=== PATIENT | female | born 1980 | race Two or more races ===

== ENCOUNTER 2017-08-02 09:43 | Emergency (ER) | payer OTHER ==
[~2017-08-02] VITALS: Ht 170.2 cm; Wt 51.7 kg
[~2017-08-02 09:43] MED LIST: LORA5TAB9
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
--- NOTE | 2017-08-02 10:10 | NUR ---
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
[2017-08-02] MEDS ORDERED: ONDANSETRON 4 MG TAB.RAPDIS PO ONE (10:30)
[2017-08-02] MEDS ORDERED: ONDANSETRON HCL/PF 4 MG/2 ML VIAL ONE (10:36)
--- NOTE | 2017-08-02 10:40 | NUR ---
NEW IV STARTED ON LAC, 20G, BLOOD DRAWN AND SENT TO LAB.
--- NOTE | 2017-08-02 10:45 | NUR ---
PATIENT MEDICATED PER MD ORDERS.
[2017-08-02 10:50] LABS: BASOPHILS % (AUTO) 0.5 % (0.0-2.0); EOSINOPHILS % (AUTO) 0.6 % (0.0-6.0); HEMATOCRIT 40 % (33-45); HEMOGLOBIN 13.8 g/dL (11.5-14.8); LYMPHOCYTES # (AUTO) 1.1 /CMM (0.8-4.8); LYMPHOCYTES % (AUTO) 20.8 % (20.0-44.0); MEAN CORPUSCULAR HGB CONC 35 g/dl (31.0-36.0); MEAN CORPUSCULAR VOLUME 90 fL (82-100); MONOCYTES # (AUTO) 0.2 /CMM (0.1-1.30); MONOCYTES % (AUTO) 3.4 % (2.0-12.0); NEUTROPHILS % (AUTO) 74.7 % (43.0-81.0); PLATELET COUNT (AUTO) 127 /CMM (150-450); RDW COEFFICIENT OF VARIATION 11.7 (11.5-15.0); WHITE BLOOD COUNT (AUTO) 5.3 K/uL (4.3-11.0)
--- NOTE | 2017-08-02 10:56 | NUR ---
PATIENT TAKEN TO CT VIA STRETCHER.
[2017-08-02] MEDS ORDERED: ONDANSETRON HCL/PF 4 MG/2 ML VIAL IV ONE (11:00)
[2017-08-02] MEDS ORDERED: IV NS 0.9% 1,000 ML BAG IV ONE (11:00)
[2017-08-02 11:04] LABS: CARBON DIOXIDE 31 mmol/L (21-32); CHLORIDE 108 mmol/L (98-107); CREATININE 0.8 mg/dL (0.6-1.3); GLUCOSE 111 mg/dL (74-106); POTASSIUM 3.9 mmol/L (3.5-5.1); SODIUM SERUM 147 mmol/L (136-145); UREA NITROGEN, BLOOD 11 mg/dL (7-18)
[2017-08-02 11:08] LABS: TROPONIN I < 0.017 ng/mL (0.00-0.056)
--- NOTE | 2017-08-02 11:08 | NUR ---
PATIENT RETURNED FROM CT IN STABLE CONDITION.
[2017-08-02 11:10] LABS: ALANINE AMINOTRANSFERASE 18 U/L (12-78); ALBUMIN 4.2 g/dL (3.4-5.0); ALKALINE PHOSPHATASE 58 U/L (46-116); ASPARTATE AMINOTRANSFERASE 13 U/L (15-37); BILIRUBIN,DIRECT 0.2 mg/dL (0.0-0.2); BILIRUBIN,TOTAL 0.6 mg/dL (0.2-1.0); TOTAL PROTEIN, SERUM 7.8 g/dL (6.4-8.2)
--- NOTE | 2017-08-02 12:07 | NUR ---
PATIENT FEELING MUCH BETTER, AMBULATING INDEPENDENTLY, NO DIZZINESS. CLEAR FOR DISCHARGE BY DR. CODY.
--- NOTE | 2017-08-02 12:10 | NUR ---
IV removed. Catheter intact and site benign. Pressure and 4x4 applied to site. No bleeding noted.
--- NOTE | 2017-08-02 12:14 | NUR ---
Patient discharged to home in stable condition. Written and verbal after care instructions given. Patient verbalizes understanding of instruction.
[2017-08-02 12:15] VITALS: BP 100/60
== END 2017-08-02 12:16 | disposition home or self-care (01) ==
LOC: ER 09:45
DX: S80.02XA Contusion of left knee, initial encounter (principal); R55 Syncope and collapse; W18.00XA Striking against unspecified object with subsequent fall, initial encounter; Y93.89 Activity, other specified; Y92.89 Other specified places as the place of occurrence of the external cause; Y99.8 Other external cause status
CPT/HCPCS: 36415; 70450-TC; 73564-TC; 80048-TC; 80076-TC; 82962-TC; 84484-TC; 84703-TC; 85025-TC; A4606; J2405; J7030; Z7610

== ENCOUNTER 2018-01-24 23:20 | Emergency (ER) | payer OTHER ==
[~2018-01-24] VITALS: Ht 170.2 cm; Wt 54.4 kg
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
[2018-01-25] MEDS ORDERED: ACETAMINOPHEN ES 500 MG TABLET PO ONE
--- NOTE | 2018-01-25 | NUR ---
RADIOLOGY AT BEDSIDE FOR CXR
[2018-01-25] MEDS ORDERED: ACETAMINOPHEN ES 500 MG TABLET ONE (00:05)
--- NOTE | 2018-01-25 01:08 | NUR ---
Patient discharged to home in stable condition. Written and verbal after care instructions given. Patient verbalizes understanding of instruction. Pt ambulatory with a steady gait.
[2018-01-25 01:10] VITALS: BP 118/72
== END 2018-01-25 01:11 | disposition home or self-care (01) ==
LOC: ER 23:22
DX: R07.89 Other chest pain (principal)
CPT/HCPCS: 71045; 93005; 99284; A4606; Z7610

== ENCOUNTER 2019-06-22 21:34 | Emergency (ER) | payer BC, OTHER ==
[~2019-06-22] VITALS: Ht 167.6 cm; Wt 49.9 kg
[2019-06-22 21:45] VITALS: BP 108/70
[2019-06-22] MEDS ORDERED: TDAP [DIPH/PERTUSSIS/TET] 0.5 ML VIAL IM ONE ×2 (21:54→22:00)
== END 2019-06-22 21:58 | disposition home or self-care (01) ==
LOC: ER 21:36
DX: S61.241A Puncture wound with foreign body of left index finger without damage to nail, initial encounter (principal); Z79.899 Other long term (current) drug therapy; Z23 Encounter for immunization; W46.0XXA Contact with hypodermic needle, initial encounter; Y93.89 Activity, other specified; Y92.89 Other specified places as the place of occurrence of the external cause; Y99.8 Other external cause status
CPT/HCPCS: 90715